=== PATIENT | male | born 1945 | race Two or more races ===

== ENCOUNTER 2022-06-01 16:03 | Inpatient (IN) | payer OTHER, MEDICAID ==
[~2022-06-01] VITALS: Ht 167.6 cm; Wt 57.3 kg
[2022-06-01 16:42] LABS: Basophils # (auto) 0.1 10 ^3/uL (0-0.2); Eosinophils # (auto) 0.1 10 ^3/uL (0-0.8); Eosinophils % (auto) 1.5 % (0.0-7.0); Hematocrit 41.9 % (41.0-53.0); Hemoglobin 14.1 g/dL (13.5-17.5); Lymphocytes # (auto) 1.8 10 ^3/uL (0.4-5.4); Mean Corpuscular Hemoglobin 27.9 pg (28.0-32.0); Mean Corpuscular Hgb Conc. 33.7 g/dL (32.0-36.0); Mean Corpuscular Volume 82.7 fL (80.0-100.0); Monocytes # (auto) 0.5 10 ^3/uL (0-1.3); Monocytes % (auto) 7.1 % (0.0-12.0); Neutrophils # (auto) 4.9 10 ^3/uL (1.6-8.6); Neutrophils % (auto) 66.4 % (37.0-80.0); Red Blood Cells 5.07 10^6/uL (4.5-5.90); Red Cell Distribution Width 14.2 % (11.8-14.3); White Blood Cell 7.3 10^3/uL (4.4-10.8)
[2022-06-01 16:58] LABS: Albumin 2.7 g/dL (3.4-5.0); Calcium 8.6 mg/dL (8.5-10.1); Potassium 4.7 mmol/L (3.5-5.1)
[2022-06-01 17:01] LABS: Bilirubin, Total 0.2 mg/dL (0.2-1.0); Total Protein 6.2 g/dL (6.4-8.2)
[2022-06-01] MEDS ORDERED: SODIUM CHLORIDE 0.9% 1,000 ML IV ONE ×2 (17:30)
[2022-06-01] MEDS ORDERED: InsuLIN REG 1unit/0.01ml Soln (100units/ml) IV ONE (17:30)
[2022-06-01 17:55] LABS: BUN/Creatinine Ratio 13.6
[2022-06-01] MEDS ORDERED: hydrALAZINE HCL 20 MG/ML VL IV ONE (18:15)
[2022-06-01] MEDS ORDERED: amLODIPine BESYLATE 5 MG TAB PO ONE (20:00)
[2022-06-01] MEDS ORDERED: ONDANSETRON HCL 4 MG/2 ML VIAL IV PRN (21:15)
[2022-06-01] MEDS ORDERED: DEXTROSE (50%) 50ML SYRG IV PRN (21:15)
[2022-06-01] MEDS: SODIUM CHLORIDE 0.9% 1,000 ML IV SCH (21:15)
[2022-06-01] MEDS ORDERED: HYDROcodone-ACET 5/325MG TAB PO PRN (21:15)
[2022-06-01] MEDS ORDERED: ACETAMINOPHEN 325 MG TAB PO PRN (21:15)
[2022-06-01] MEDS ORDERED: DOCUSATE SOD 100 MG CAP PO PRN (21:15)
[2022-06-01] MEDS: hydrALAZINE HCL 20 MG/ML VL IV PRN (22:03)
[2022-06-01] MEDS: ATORVASTATIN 20 MG TAB PO SCH (22:20)
[2022-06-01] MEDS ORDERED: NITROGLYCERIN 0.4 MG SL TAB SL PRN (23:30)
[2022-06-01] MEDS ORDERED: MORPHINE SULFATE INJ 2 MG/ml SYRG IV PRN (23:30)
[2022-06-02] MEDS: ACCU-CHEK COMFORT CURVE STRIP VI SCH ×7 (00:19→22:57)
[2022-06-02] MEDS: InsuLIN REG 1unit/0.01ml Soln (100units/ml) SC SCH ×7 (00:19→23:01)
[2022-06-02] MEDS ORDERED: amLODIPine BESYLATE 5 MG TAB PO ONE (02:00)
[2022-06-02] MEDS: hydrALAZINE HCL 20 MG/ML VL IV PRN ×3 (04:27→22:57)
[2022-06-02 06:22] LABS: Basophils # (auto) 0.1 10 ^3/uL (0-0.2); Basophils % (auto) 0.9 % (0.0-2.0); Eosinophils # (auto) 0.2 10 ^3/uL (0-0.8); Eosinophils % (auto) 1.6 % (0.0-7.0); Hematocrit 43.6 % (41.0-53.0); Hemoglobin 14.7 g/dL (13.5-17.5); Lymphocytes # (auto) 3.5 10 ^3/uL (0.4-5.4); Mean Corpuscular Hemoglobin 27.7 pg (28.0-32.0); Mean Corpuscular Hgb Conc. 33.8 g/dL (32.0-36.0); Mean Corpuscular Volume 81.8 fL (80.0-100.0); Monocytes % (auto) 8.2 % (0.0-12.0); Neutrophils # (auto) 7.7 10 ^3/uL (1.6-8.6); Neutrophils % (auto) 61.3 % (37.0-80.0); Nucleated Red Blood Cells % 0.2 %; Red Blood Cells 5.33 10^6/uL (4.5-5.90); Red Cell Distribution Width 13.9 % (11.8-14.3); White Blood Cell 12.5 10^3/uL (4.4-10.8)
[2022-06-02 06:51] LABS: Albumin 2.8 g/dL (3.4-5.0); Calcium 8.7 mg/dL (8.5-10.1); Potassium 3.3 mmol/L (3.5-5.1)
[2022-06-02 06:57] LABS: BUN/Creatinine Ratio 18.9; Bilirubin, Total 0.6 mg/dL (0.2-1.0); Total Protein 6.3 g/dL (6.4-8.2)
[2022-06-02] MEDS: ASPirin 81 mg TAB PO SCH (09:37)
[2022-06-02] MEDS: amLODIPine BESYLATE 5 MG TAB PO SCH (09:37)
[2022-06-02] MEDS ORDERED: METOPROLOL TARTRATE 50 MG TAB PO ONE (10:45)
[2022-06-02 10:59] LABS: Urine Bacteria NONE SEEN /hpf (None Seen); Urine Blood Negative /uL (Negative); Urine Hyaline Cast MOD /lpf (0 - 2); Urine Mucus FEW (None Seen); Urine Specific Gravity 1.021 (1.001-1.035); Urine WBC 8 /hpf (0 - 3)
[2022-06-02] MEDS: CARVEDILOL 3.125 MG TAB PO SCH ×2 (13:32→21:48)
[2022-06-02] MEDS: SODIUM CHLORIDE 0.9% 1,000 ML IV SCH (14:18)
[2022-06-02 16:30] VITALS: BP 137/74
[2022-06-02 17:00] VITALS: BP 137/74
[2022-06-02 20:00] VITALS: BP 168/72
[2022-06-02] MEDS: ATORVASTATIN 20 MG TAB PO SCH (21:48)
[2022-06-02 22:00] VITALS: BP 168/72
[2022-06-02] MEDS ORDERED: METOPROLOL TARTRATE 50 MG TAB PO SCH (22:00)
[2022-06-03] VITALS (7 sets, daily range): BP systolic 145–169; BP diastolic 65–79
[2022-06-03] MEDS: ACCU-CHEK COMFORT CURVE STRIP VI SCH ×4 (04:00→18:13)
[2022-06-03] MEDS: InsuLIN REG 1unit/0.01ml Soln (100units/ml) SC SCH ×4 (04:01→18:19)
[2022-06-03] MEDS: hydrALAZINE HCL 20 MG/ML VL IV PRN (05:02)
[2022-06-03] MEDS: ASPirin 81 mg TAB PO SCH (09:46)
[2022-06-03] MEDS: CARVEDILOL 3.125 MG TAB PO SCH (09:50)
[2022-06-03] MEDS: amLODIPine BESYLATE 5 MG TAB PO SCH (09:55)
[2022-06-03] MEDS ORDERED: ENOXAPARIN SOD 40 MG/0.4 ML SYRINGE SC SCH (10:00)
[2022-06-03] MEDS: SODIUM CHLORIDE 0.9% 1,000 ML IV SCH (10:56)
[2022-06-03] MEDS ORDERED: ASPI-498 PO (12:03)
[2022-06-03] MEDS ORDERED: SITA50TA28 PO (12:03)
[2022-06-03] MEDS ORDERED: AMLO-496 PO (12:03)
[2022-06-03] MEDS ORDERED: CARV6.25 PO (12:03)
[2022-06-03] MEDS ORDERED: ATO40T PO (12:03)
== END 2022-06-03 19:45 | disposition home or self-care (01) | DRG 305 ==
LOC: ER 16:07 → TELE 23:16 → TELE-WESTW 06-02 16:19
PROVIDERS: ADMIT Nurse Practitioner Family; ATTEND Family Medicine
DX: I16.1 Hypertensive emergency (principal); E87.1 Hypo-osmolality and hyponatremia; E11.65 Type 2 diabetes mellitus with hyperglycemia; E88.09 Other disorders of plasma-protein metabolism, not elsewhere classified; E78.00 Pure hypercholesterolemia, unspecified; I10 Essential (primary) hypertension; R07.89 Other chest pain; E78.5 Hyperlipidemia, unspecified; E87.6 Hypokalemia; Z20.822 Contact with and (suspected) exposure to COVID-19; Z91.199 Patient's noncompliance with other medical treatment and regimen due to unspecified reason
CPT/HCPCS: 36415; 71045; 80053; 80061; 81001; 82962; 83036; 83880; 84484; 85025; 87426; 93005; 93306; 96361; 96374; 96375; 99291; G0378; J1815